=== PATIENT | female | born 2000 | race African-American/Black ===

== ENCOUNTER 2021-12-22 09:19 | Emergency (ER) | payer MEDICAID, OTHER ==
[~2021-12-22] VITALS: Ht 167.6 cm; Wt 74.0 kg
[2021-12-22] MEDS ORDERED: KETOROLAC 30MG/ML VIAL IV STA (10:27)
[2021-12-22] MEDS ORDERED: ONDANSETRON 4MG ODT PO STA (10:27)
[2021-12-22 10:48] VITALS: BP 109/67
[2021-12-22 11:00] LABS: BASOPHILS % 0.6 % (0.0-2.0); EOSINOPHILS % 0.6 % (0.0-5.0); HEMATOCRIT. 40.6 % (36.0-48.0); HEMOGLOBIN. 13.6 g/dL (12.0-16.0); LYMPHOCYTES % 23.1 % (20.0-50.0); MEAN CORPUSCULAR HEMOGLOBIN 30.5 pg (28.0-32.0); MEAN CORPUSCULAR VOLUME 91.1 fL (81.0-99.0); MEAN PLATELET VOLUME 9.8 fl (7.4-10.4); MONOCYTES % 5.1 % (2.0-8.0); NEUTROPHILS % 70.6 % (40.0-76.0); PLATELET 239 x1000/uL (130-400); RED BLOOD CELL COUNT 4.46 mill/uL (4.2-5.4); RED CELL DISTRIBUTION WIDTH 15.2 % (11.6-14.6)
[2021-12-22 11:21] LABS: CHLORIDE 106 mEq/L (98-107)
[2021-12-22 11:28] LABS: HCG SCREEN POSITIVE
[2021-12-22 12:56] LABS: CLARITY URINE CLEAR (CLEAR); COLOR URINE YELLOW (YELLOW); KETONES URINE NEGATIVE (NEGATIVE); LEUKOCYTE ESTERASE URINE 1+ (NEGATIVE); NITRITE URINE NEGATIVE (NEGATIVE); OCCULT BLOOD URINE NEGATIVE (NEGATIVE); PH URINE 6.5 (4.5-8.0); PROTEIN URINE NEGATIVE (NEGATIVE); SPECIFIC GRAVITY URINE 1.021 (1.005-1.030); UROBILINOGEN URINE 0.2 E.U./dL (0.2-1.0)
[2021-12-22] MEDS ORDERED: CEPH500C2 MT (15:33)
== END 2021-12-22 15:54 | disposition home or self-care (01) ==
LOC: ER 09:19
DX: O26.891 Other specified pregnancy related conditions, first trimester (principal); O34.81 Maternal care for other abnormalities of pelvic organs, first trimester; N83.202 Unspecified ovarian cyst, left side; N83.201 Unspecified ovarian cyst, right side; Z3A.01 Less than 8 weeks gestation of pregnancy; O23.41 Unspecified infection of urinary tract in pregnancy, first trimester; N39.0 Urinary tract infection, site not specified
CPT/HCPCS: 36415; 76705; 76801; 76817; 80053; 81003; 81025; 83690; 84702; 84703; 85025; 85610; 96374; 99284; J1885; Q0162

== ENCOUNTER 2022-05-13 18:02 | Emergency (ER) | payer MEDICAID, OTHER ==
[~2022-05-13] VITALS: Ht 170.2 cm; Wt 74.0 kg
[~2022-05-13 18:02] MED LIST: CEPH500C2 MT
[2022-05-13 18:03] VITALS: BP 105/67
[2022-05-13] MEDS ORDERED: LIDOCAINE HCL/EPINEPHRINE 1%-EPI 1:100,000 20 ML VIAL INFIL ONE (18:30)
[2022-05-13] MEDS ORDERED: ACETAMINOPHEN 325MG TABLET PO ONE (18:30)
[2022-05-13] MEDS ORDERED: BACITRACIN ZINC OINT UDPKT TOP ONE (18:30)
[2022-05-13] MEDS ORDERED: LIDOCAINE HCL/PF 1% 10 MG/ML 5ML VIAL INFIL ONE (18:30)
[2022-05-13] MEDS ORDERED: IBUP-2028 MT (20:43)
[2022-05-13] MEDS ORDERED: DOXY100C5 MT (20:45)
[2022-05-13] MEDS ORDERED: CEFTRIAXONE SODIUM 500 MG/VIAL IM ONE (20:45)
[2022-05-13] MEDS ORDERED: LIDOCAINE HCL 1% 20ML VIAL (Pyxis) INJ INFIL ONE (20:45)
== END 2022-05-13 22:31 | disposition home or self-care (01) ==
LOC: ER 18:02
DX: S61.412A Laceration without foreign body of left hand, initial encounter (principal); X99.8XXA Assault by other sharp object, initial encounter; M79.672 Pain in left foot; Y93.89 Activity, other specified; Z20.2 Contact with and (suspected) exposure to infections with a predominantly sexual mode of transmission; Y92.488 Other paved roadways as the place of occurrence of the external cause
CPT/HCPCS: 12001; 73130; 73630; 81025; 87491; 87591; 96372; 99284; J0696; J3490; Z7610

== ENCOUNTER 2022-12-31 21:23 | Emergency (ER) | payer MEDICAID, OTHER ==
[~2022-12-31] VITALS: Ht 167.6 cm; Wt 82.3 kg
[~2022-12-31 21:23] MED LIST changes: +DOXY100C5 MT; +IBUP-2028 MT
[2022-12-31 21:35] VITALS: BP 126/68; O2SAT 100
[2022-12-31] MEDS ORDERED: ACETAMINOPHEN 325MG TABLET PO STA (22:51)
[2023-01-01] MEDS ORDERED: TOPUD MT (01:29)
[2023-01-01 02:00] VITALS: PULSE 94; RESP 18; TEMP 98.4
== END 2023-01-01 02:02 | disposition home or self-care (01) ==
LOC: ER 21:23
DX: R51.9 Headache, unspecified (principal); J45.909 Unspecified asthma, uncomplicated
CPT/HCPCS: 81025; 99284

== ENCOUNTER 2023-02-19 23:03 | Emergency (ER) | payer MEDICAID ==
[~2023-02-19] VITALS: Ht 170.2 cm; Wt 78.0 kg
[~2023-02-19 23:03] MED LIST changes: +TOPUD MT
[2023-02-19 23:14] VITALS: BP 142/90; PULSE 63; RESP 16; TEMP 98.6; O2SAT 100
[2023-02-19] MEDS ORDERED: CEFTRIAXONE SODIUM 1 G/VIAL IM ONE (23:45)
[2023-02-19 23:47] LABS: CLARITY URINE CLEAR (CLEAR); COLOR URINE YELLOW (YELLOW); GLUCOSE URINE NEGATIVE (NEGATIVE); KETONES URINE NEGATIVE (NEGATIVE); LEUKOCYTE ESTERASE URINE NEGATIVE (NEGATIVE); NITRITE URINE NEGATIVE (NEGATIVE); OCCULT BLOOD URINE NEGATIVE (NEGATIVE); PROTEIN URINE NEGATIVE (NEGATIVE); SPECIFIC GRAVITY URINE 1.016 (1.005-1.030); UROBILINOGEN URINE 0.2 E.U./dL (0.2-1.0)
[2023-02-20] MEDS ORDERED: METR-167 MT (00:22)
[2023-02-20] MEDS ORDERED: DOXY100C5 MT (00:22)
== END 2023-02-20 00:35 | disposition home or self-care (01) ==
LOC: ER 23:03
DX: N89.8 Other specified noninflammatory disorders of vagina (principal)
CPT/HCPCS: 81003; 81025; 99283; 96372; J0696; Z7610

== ENCOUNTER 2023-03-06 21:16 | Emergency (ER) | payer MEDICAID ==
[~2023-03-06] VITALS: Ht 170.2 cm; Wt 80.0 kg
[~2023-03-06 21:16] MED LIST changes: +METR-167 MT
[2023-03-06 21:31] VITALS: BP 116/72; O2SAT 100
[2023-03-06] MEDS ORDERED: RALT400T MT (22:53)
[2023-03-06] MEDS ORDERED: EMTR1TAB11 MT (22:53)
[2023-03-06 23:23] VITALS: PULSE 77; RESP 18; TEMP 98
[2023-03-06 23:39] LABS: ALANINE AMINOTRANSFERASE 14 IU/L (10-49); ALBUMIN 4.3 g/dL (3.2-4.8); ASPARTATE AMINOTRANSFERASE 19 IU/L (<34); BILIRUBIN TOTAL 0.7 mg/dL (0.1-1.0); CALCIUM 9.4 mg/dL (8.7-10.4); CARBON DIOXIDE 30 mEq/L (21-32); CHLORIDE 105 mEq/L (98-107); CREATININE 0.7 mg/dL (0.6-1.0); GLUCOSE 84 mg/dL (70-105); POTASSIUM 3.3 mEq/L (3.5-5.1); PROTEIN TOTAL 7.6 g/dL (6.0-8.3); SODIUM 140 mEq/L (136-145); UREA NITROGEN BLOOD 8 mg/dL (9-23)
[2023-03-07 04:48] LABS: HEPATITIS C VIR.AB 0.13 INDEXVAL (0.00-0.80)
[2023-03-07 04:53] LABS: HEPATITIS B SURFACE AB < 0.1 mIU/mL
[2023-03-10 08:08] LABS: HBSAG SCREEN Negative (Negative)
== END 2023-03-06 23:25 | disposition home or self-care (01) ==
LOC: ER 21:16
DX: S60.410A Abrasion of right index finger, initial encounter (principal); W45.8XXA Other foreign body or object entering through skin, initial encounter; Y93.89 Activity, other specified; Y92.89 Other specified places as the place of occurrence of the external cause; Y99.8 Other external cause status
CPT/HCPCS: 36415; 80053; 81025; 87340; 99283

== ENCOUNTER 2023-03-23 22:01 | Emergency (ER) | payer MEDICAID ==
[~2023-03-23] VITALS: Ht 170.2 cm; Wt 79.9 kg
[~2023-03-23 22:01] MED LIST changes: +EMTR1TAB11 MT; +RALT400T MT
[2023-03-23 22:06] VITALS: O2SAT 99
[2023-03-23 22:40] LABS: CLARITY URINE CLEAR (CLEAR); COLOR URINE DARK YELLOW (YELLOW); GLUCOSE URINE NEGATIVE (NEGATIVE); KETONES URINE NEGATIVE (NEGATIVE); LEUKOCYTE ESTERASE URINE 1+ (NEGATIVE); NITRITE URINE POSITIVE (NEGATIVE); OCCULT BLOOD URINE 1+ (NEGATIVE); PROTEIN URINE TRACE (NEGATIVE)
[2023-03-23 23:17] LABS: BACTERIA URINE 2+; SQUAMOUS EPITHELIAL CELL URINE 1+ /lpf (RARE/1+)
[2023-03-23] MEDS ORDERED: NITR-87 MT (23:47)
[2023-03-23 23:52] VITALS: BP 134/62; PULSE 80; RESP 16; TEMP 98.1
== END 2023-03-24 00:01 | disposition home or self-care (01) ==
LOC: ER 22:01
DX: N39.0 Urinary tract infection, site not specified (principal); Z79.899 Other long term (current) drug therapy
CPT/HCPCS: 81003; 81025; 99283

== ENCOUNTER 2023-05-01 01:33 | Emergency (ER) | payer MEDICAID, OTHER ==
[~2023-05-01] VITALS: Ht 170.2 cm; Wt 65.0 kg
[~2023-05-01 01:33] MED LIST changes: +NITR-87 MT
[2023-05-01 01:40] VITALS: BP 122/74; PULSE 74; RESP 15; O2SAT 100
[2023-05-01] MEDS: BACITRACIN ZINC OINT UDPKT TOP ONE (02:15)
[2023-05-01] MEDS: LIDOCAINE HCL/PF 1% 10 MG/ML 5ML VIAL INFIL ONE (02:15)
[2023-05-01 03:00] VITALS: TEMP 98.1
[2023-05-01] MEDS: ACETAMINOPHEN 325MG TABLET PO ONE (03:00)
== END 2023-05-01 03:28 | disposition home or self-care (01) ==
LOC: ER 01:33
DX: S61.214A Laceration without foreign body of right ring finger without damage to nail, initial encounter (principal); W25.XXXA Contact with sharp glass, initial encounter; Y93.89 Activity, other specified; Y92.89 Other specified places as the place of occurrence of the external cause; Y99.8 Other external cause status
CPT/HCPCS: 12002; 99283; J3490; Z7610

== ENCOUNTER 2023-05-04 17:50 | Emergency (ER) | payer MEDICAID, OTHER ==
[~2023-05-04] VITALS: Ht 170.2 cm; Wt 77.0 kg
[2023-05-04 17:59] VITALS: BP 122/41; PULSE 61; RESP 20; O2SAT 100
[2023-05-04] MEDS ORDERED: ACETAMINOPHEN 325MG TABLET PO ONE (18:15)
[2023-05-04 18:23] VITALS: TEMP 98.3
[2023-05-04 19:41] LABS: CLARITY URINE CLEAR (CLEAR); COLOR URINE ORANGE (YELLOW); GLUCOSE URINE NEGATIVE (NEGATIVE); KETONES URINE TRACE (NEGATIVE); LEUKOCYTE ESTERASE URINE NEGATIVE (NEGATIVE); NITRITE URINE NEGATIVE (NEGATIVE); OCCULT BLOOD URINE 3+ (NEGATIVE); PH URINE 5.5 (4.5-8.0); PROTEIN URINE TRACE (NEGATIVE); SPECIFIC GRAVITY URINE 1.026 (1.005-1.030)
[2023-05-04 19:43] LABS: BASOPHILS % 0.7 % (0.0-2.0); EOSINOPHILS % 0.8 % (0.0-5.0); HEMATOCRIT. 40.4 % (36.0-48.0); HEMOGLOBIN. 13.3 g/dL (12.0-16.0); LYMPHOCYTES % 40.8 % (20.0-50.0); MEAN CORPUSCULAR HEMOGLOBIN 30.9 pg (28.0-32.0); MEAN CORPUSCULAR HGB CONC 32.9 g/dL (31.0-37.0); MEAN PLATELET VOLUME 9.5 fl (7.4-10.4); MONOCYTES % 5.6 % (2.0-8.0); NEUTROPHILS % 52.1 % (40.0-76.0); PLATELET 219 x1000/uL (130-400); RED CELL DISTRIBUTION WIDTH 13.6 % (11.6-14.6); WHITE BLOOD COUNT 7.4 x1000/uL (4.5-11.0)
[2023-05-04 19:51] LABS: BACTERIA URINE 1+; RBC URINE 50-100 /hpf (0-2); SQUAMOUS EPITHELIAL CELL URINE 1+ /lpf (RARE/1+); WBC URINE 0-2 /hpf (0-2)
[2023-05-04 19:54] LABS: ALANINE AMINOTRANSFERASE 11 IU/L (10-49); ALBUMIN 4.2 g/dL (3.2-4.8); ASPARTATE AMINOTRANSFERASE 16 IU/L (<34); BILIRUBIN TOTAL 0.6 mg/dL (0.1-1.0); CARBON DIOXIDE 25 mEq/L (21-32); CHLORIDE 105 mEq/L (98-107); CREATININE 0.6 mg/dL (0.6-1.0); GLUCOSE 79 mg/dL (70-105); POTASSIUM 3.6 mEq/L (3.5-5.1); PROTEIN TOTAL 7.7 g/dL (6.0-8.3); SODIUM 136 mEq/L (136-145); UREA NITROGEN BLOOD 8 mg/dL (9-23)
[2023-05-04 19:55] LABS: B-HCG QUANTITATIVE 1 mIU/mL (<3)
== END 2023-05-04 20:38 | disposition home or self-care (01) ==
LOC: ER 17:50
DX: N94.6 Dysmenorrhea, unspecified (principal); A64 Unspecified sexually transmitted disease; Z79.899 Other long term (current) drug therapy
CPT/HCPCS: 36415; 76830; 76856; 80053; 81003; 84702; 85025; 86850; 86900; 99284

== ENCOUNTER 2023-07-06 16:35 | Emergency (ER) | payer MEDICAID ==
[~2023-07-06] VITALS: Ht 170.2 cm; Wt 78.0 kg
[2023-07-06 16:39] VITALS: O2SAT 100
[2023-07-06 17:13] LABS: CLARITY URINE CLEAR (CLEAR); COLOR URINE YELLOW (YELLOW); GLUCOSE URINE NEGATIVE (NEGATIVE); KETONES URINE NEGATIVE (NEGATIVE); LEUKOCYTE ESTERASE URINE TRACE (NEGATIVE); NITRITE URINE NEGATIVE (NEGATIVE); OCCULT BLOOD URINE NEGATIVE (NEGATIVE); PH URINE 6.5 (4.5-8.0); PROTEIN URINE NEGATIVE (NEGATIVE); SPECIFIC GRAVITY URINE 1.023 (1.005-1.030); UROBILINOGEN URINE 0.2 E.U./dL (0.2-1.0)
[2023-07-06 17:30] LABS: ALANINE AMINOTRANSFERASE 11 IU/L (10-49); ALBUMIN 5.2 g/dL (3.2-4.8); ASPARTATE AMINOTRANSFERASE 20 IU/L (<34); BILIRUBIN TOTAL 0.6 mg/dL (0.1-1.0); CALCIUM 9.5 mg/dL (8.7-10.4); CARBON DIOXIDE 27 mEq/L (21-32); CHLORIDE 107 mEq/L (98-107); CREATININE 0.8 mg/dL (0.6-1.0); GLUCOSE 89 mg/dL (70-105); POTASSIUM 3.4 mEq/L (3.5-5.1); PROTEIN TOTAL 9.2 g/dL (6.0-8.3); SODIUM 138 mEq/L (136-145); UREA NITROGEN BLOOD 8 mg/dL (9-23)
[2023-07-06 17:30] LABS: BACTERIA URINE 2+; RBC URINE 0-2 /hpf (0-2); SQUAMOUS EPITHELIAL CELL URINE 1+ /lpf (RARE/1+); WBC URINE 0-2 /hpf (0-2)
[2023-07-06 17:38] LABS: EOSINOPHILS % 0.9 % (0.0-5.0); HEMATOCRIT. 42.8 % (36.0-48.0); HEMOGLOBIN. 14.4 g/dL (12.0-16.0); LYMPHOCYTES % 37.8 % (20.0-50.0); MEAN CORPUSCULAR HEMOGLOBIN 32.2 pg (28.0-32.0); MEAN CORPUSCULAR HGB CONC 33.7 g/dL (31.0-37.0); MEAN CORPUSCULAR VOLUME 95.5 fL (81.0-99.0); MEAN PLATELET VOLUME 10.4 fl (7.4-10.4); MONOCYTES % 5.1 % (2.0-8.0); NEUTROPHILS % 55.2 % (40.0-76.0); PLATELET 258 x1000/uL (130-400); RED BLOOD CELL COUNT 4.48 mill/uL (4.2-5.4); RED CELL DISTRIBUTION WIDTH 13.4 % (11.6-14.6)
[2023-07-06] MEDS: ACETAMINOPHEN 325MG TABLET PO NR (19:31)
[2023-07-06] MEDS: IBUPROFEN 400MG TABLET PO ONE (20:58)
[2023-07-06] MEDS ORDERED: DOXY100C5 MT (22:55)
[2023-07-06 23:00] VITALS: BP 110/57; PULSE 74; RESP 17; TEMP 98.9
[2023-07-06] MEDS: DOXYCYCLINE HYCLATE 100MG CAPSULE PO NR (23:21)
[2023-07-06] MEDS: CEFTRIAXONE SODIUM 500MG VIAL IM NR (23:21)
[2023-07-06] MEDS: LIDOCAINE HCL 1% 20ML VIAL (Pyxis) INJ INFIL NR (23:21)
== END 2023-07-06 23:18 | disposition home or self-care (01) ==
LOC: ER 16:35
DX: R10.30 Lower abdominal pain, unspecified (principal); Z79.899 Other long term (current) drug therapy
CPT/HCPCS: 99285; 74176; 76830; 76856; 80053; 81003; 81025; 85025; 36415; 96372; J0696; J3490

== ENCOUNTER 2023-11-16 23:53 | Emergency (ER) | payer SELFPAY ==
[~2023-11-16] VITALS: Ht 170.2 cm; Wt 72.0 kg
[2023-11-17 00:06] VITALS: O2SAT 99
[2023-11-17 00:11] VITALS: BP 112/64; PULSE 65; RESP 18; TEMP 98.5; O2SAT 100
[2023-11-17] MEDS ORDERED: ACETAMINOPHEN 325MG TABLET PO PRN ×2 (00:15→01:30)
== END 2023-11-17 13:03 | disposition home or self-care (01) ==
LOC: ER 23:53
DX: R10.2 Pelvic and perineal pain (principal); Z32.02 Encounter for pregnancy test, result negative; Z79.899 Other long term (current) drug therapy
CPT/HCPCS: 36415; 76830; 76856; 84702; 99284

== ENCOUNTER 2023-12-16 15:00 | Emergency (ER) | payer SELFPAY ==
[~2023-12-16] VITALS: Ht 175.3 cm; Wt 64.0 kg
[2023-12-16 15:05] VITALS: BP 108/58; PULSE 77; RESP 16; TEMP 98.6; O2SAT 98
[2023-12-16] MEDS ORDERED: FLUCONAZOLE 100MG TABLET PO ONE (15:15)
[2023-12-16] MEDS ORDERED: FLUCONAZOLE 150MG TABLET PO NR (15:30)
== END 2023-12-16 15:48 | disposition home or self-care (01) ==
LOC: ER 15:00
DX: B37.9 Candidiasis, unspecified (principal); Z79.899 Other long term (current) drug therapy
CPT/HCPCS: 99281

== ENCOUNTER 2024-04-07 22:17 | Emergency (ER) | payer SELFPAY ==
[2024-04-07] MEDS: SODIUM CHLORIDE 0.9% 1,000 ML IV ONE (22:30)
[2024-04-07] MEDS: MAGNESIUM/ALUMINUM HYDROXIDE/SIMETHICONE 30ML UDC PO ONE (22:30)
[2024-04-07 23:48] LABS: BASOPHILS % 0.5 % (0.0-2.0); EOSINOPHILS % 0.2 % (0.0-5.0); HEMATOCRIT. 39.7 % (36.0-48.0); HEMOGLOBIN. 13.2 g/dL (12.0-16.0); LYMPHOCYTES % 23.4 % (20.0-50.0); MEAN CORPUSCULAR HEMOGLOBIN 32.8 pg (28.0-32.0); MEAN CORPUSCULAR HGB CONC 33.3 g/dL (31.0-37.0); MEAN CORPUSCULAR VOLUME 98.5 fL (81.0-99.0); MONOCYTES % 2.8 % (2.0-8.0); NEUTROPHILS % 73.1 % (40.0-76.0); PLATELET 184 x1000/uL (130-400); RED BLOOD CELL COUNT 4.03 mill/uL (4.2-5.4); RED CELL DISTRIBUTION WIDTH 13.6 % (11.6-14.6); WHITE BLOOD COUNT 9.8 x1000/uL (4.5-11.0)
[2024-04-07] MEDS: FAMOTIDINE 20MG/2ML VIAL IV ONE (23:48)
[2024-04-07] MEDS: KETOROLAC 15MG/ML VIAL IV ONE (23:48)
[2024-04-07] MEDS: ONDANSETRON HCL 4MG/2ML INJ IV ONE (23:49)
[2024-04-08 00:10] LABS: CARBON DIOXIDE 23 mEq/L (21-32); CHLORIDE 107 mEq/L (98-107); SODIUM 142 mEq/L (136-145)
[2024-04-08 00:11] LABS: CALCIUM 9.6 mg/dL (8.7-10.4)
[2024-04-08 00:14] LABS: HCG SCREEN NEGATIVE
[2024-04-08 00:15] LABS: CREATININE 0.8 mg/dL (0.6-1.0); GLUCOSE 84 mg/dL (70-105)
[2024-04-08 00:16] LABS: UREA NITROGEN BLOOD 11 mg/dL (9-23)
[2024-04-08 00:17] LABS: ALANINE AMINOTRANSFERASE 20 IU/L (10-49)
[2024-04-08 00:18] LABS: ALBUMIN 4.4 g/dL (3.2-4.8); ASPARTATE AMINOTRANSFERASE 28 IU/L (<34); BILIRUBIN TOTAL 0.4 mg/dL (0.1-1.0); PROTEIN TOTAL 7.6 g/dL (6.0-8.3)
[2024-04-08 00:25] LABS: CLARITY URINE CLEAR (CLEAR); COLOR URINE YELLOW (YELLOW); GLUCOSE URINE NEGATIVE (NEGATIVE); KETONES URINE NEGATIVE (NEGATIVE); LEUKOCYTE ESTERASE URINE NEGATIVE (NEGATIVE); NITRITE URINE NEGATIVE (NEGATIVE); OCCULT BLOOD URINE NEGATIVE (NEGATIVE); PH URINE 7.5 (4.5-8.0); PROTEIN URINE NEGATIVE (NEGATIVE); SPECIFIC GRAVITY URINE 1.006 (1.005-1.030); UROBILINOGEN URINE 0.2 E.U./dL (0.2-1.0)
[2024-04-08 02:03] VITALS: BP 121/70; PULSE 60; RESP 16; TEMP 36.72516; O2SAT 97
== END 2024-04-08 02:03 | disposition home or self-care (01) ==
LOC: ER 22:17
DX: R51.9 Headache, unspecified (principal); Z79.624 Long term (current) use of inhibitors of nucleotide synthesis
CPT/HCPCS: 80053; 81003; 84703; 83690; 85025; 36415; 93005; 96361; 96374; 96375; 99284; J3490; J1885; J2405; J7030; Z7610

== ENCOUNTER 2024-04-24 19:22 | Emergency (ER) | payer SELFPAY ==
[~2024-04-24] VITALS: Ht 167.6 cm; Wt 59.6 kg
[2024-04-24 19:25] VITALS: O2SAT 100
[2024-04-24] MEDS: KETOROLAC 15MG/ML VIAL IV ONE (21:19)
[2024-04-24 22:22] VITALS: BP 105/70; PULSE 87; RESP 18; TEMP 37.05852; O2SAT 100
== END 2024-04-24 22:24 | disposition home or self-care (01) ==
LOC: ER 19:22
DX: M25.561 Pain in right knee (principal); S89.91XA Unspecified injury of right lower leg, initial encounter; W18.39XA Other fall on same level, initial encounter; Y93.89 Activity, other specified; Y92.89 Other specified places as the place of occurrence of the external cause; Y99.8 Other external cause status; Z79.624 Long term (current) use of inhibitors of nucleotide synthesis
CPT/HCPCS: 99285; 96374; 73700; 73560; J1885

== ENCOUNTER 2025-01-26 16:32 | Emergency (ER) | payer OTHER, MEDICAID ==
[~2025-01-26] VITALS: Ht 170.2 cm; Wt 59.0 kg
[~2025-01-26 16:32] MED LIST changes: -EMTR1TAB11 MT; +EMTR1TAB20 MT
[2025-01-26 16:46] VITALS: O2SAT 100
[2025-01-26] MEDS ORDERED: ACETAMINOPHEN 325MG TABLET PO ONE (18:00)
[2025-01-26] MEDS ORDERED: ONDANSETRON 4MG ODT PO ONE (18:00)
[2025-01-26] MEDS: KETOROLAC 30MG/ML VIAL IM ONE (19:26)
[2025-01-26 19:29] VITALS: BP 115/56; PULSE 98; RESP 18; TEMP 36.9; O2SAT 100
== END 2025-01-26 19:30 | disposition home or self-care (01) ==
LOC: ER 16:32
DX: R51.9 Headache, unspecified (principal); M54.50 Low back pain, unspecified; V89.2XXA Person injured in unspecified motor-vehicle accident, traffic, initial encounter; Y93.89 Activity, other specified; Y92.410 Unspecified street and highway as the place of occurrence of the external cause; Y99.8 Other external cause status
CPT/HCPCS: 99285; 70450; 72128; 72131; 96372; J1885; Q0162